=== PATIENT | male | born 1970 | race African-American/Black ===

== ENCOUNTER 2016-10-15 11:42 | Emergency (ER) | payer MEDICARE, OTHER ==
[~2016-10-15] VITALS: Ht 177.8 cm; Wt 74.8 kg
[~2016-10-15 11:42] MED LIST: ATIVAN0.5 MG ORAL; CLINDAMYCIN HC300 MG ORAL; DOXYCYCLINE MO100 MG ORAL
[2016-10-15] MEDS ORDERED: LORazepam Inj 2mg/ml 1ml IM ONE (11:45)
[2016-10-15] MEDS ORDERED: Haloperidol 5mg/ml Inj IM ONE (11:45)
[2016-10-15] MEDS ORDERED: DiphenhydrAMINE 50mg/ml Inj IM ONE (11:45)
[2016-10-15 13:57] LABS: MEAN CORPUSCULAR HEMOGLOBIN 28.5 PG (27.0-31.0); MEAN CORPUSCULAR HGB CONC 31.4 G/DL (32.0-36.0); MEAN CORPUSCULAR VOLUME 91 FL (80-99); MEAN PLATELET VOLUME 6.9 FL (6.5-10.1); PLATELET COUNT 237 K/UL (150-450); RED BLOOD COUNT 4.26 M/UL (4.70-6.10); RED CELL DISTRIBUTION WIDTH 15.8 % (11.6-14.8); WHITE BLOOD COUNT 12.7 K/UL (4.8-10.8)
[2016-10-15 14:24] LABS: ACETAMINOPHEN < 10 ug/mL (10-30); ALANINE AMINOTRANSFERASE 21 U/L (3-41); ALBUMIN/GLOBULIN RATIO 1.2 (1.0-2.7); ALCOHOL < 10 mg/dL; ANION GAP 22 (5-15); ASPARTATE AMINO TRANSFERASE 69 U/L (5-40); CALCIUM 9.8 mg/dL (8.6-10.2); CARBON DIOXIDE 22 mEQ/L (20-30); CHLORIDE 97 mEQ/L (98-107); CREATININE 1.2 mg/dL (0.7-1.2); GLOMERULAR FILTRATION RATE > 60 mL/min (>60); HEMOLYSIS 2; POTASSIUM 4.3 mEQ/L (3.4-4.9); SODIUM 141 mEQ/L (135-145)
[2016-10-15 14:25] LABS: BAND NEUTROPHILS % (MANUAL) 0 % (0-8); BASOPHILS % (MANUAL) 0 % (0-2); EOSINOPHILS % (MANUAL) 0 % (0-3); LYMPHOCYTES % (MANUAL) 6 % (20-45); NEUTROPHILS % (MANUAL) 89 % (45-75); PLATELET ESTIMATE ADEQUATE; PLATELET MORPHOLOGY NORMAL; TOTAL CELLS COUNTED 100
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
[2016-10-15 15:09] VITALS: BP 122/58
[2016-10-15 19:33] VITALS: BP 135/84
[2016-10-15 23:17] VITALS: BP 131/85
[2016-10-16 03:43] VITALS: BP 124/75
[2016-10-16 07:14] VITALS: BP 120/77
[2016-10-16 10:45] VITALS: BP 120/77
== END 2016-10-16 10:45 | disposition home or self-care (01) ==
LOC: EDBD 11:42 → EMR 12:15
DX: F19.10 Other psychoactive substance abuse, uncomplicated (principal); G82.20 Paraplegia, unspecified; Z72.811 Adult antisocial behavior; Z88.2 Allergy status to sulfonamides; Z88.8 Allergy status to other drugs, medicaments and biological substances
CPT/HCPCS: 36415; 80053; 80300; 85007; 85025; 96372; 99283; G0480; J1200; J1630; 80329